=== PATIENT | female | born 1950 | race Caucasian/White ===

== ENCOUNTER 2016-05-18 16:15 | Inpatient (IN) | payer MEDICARE, OTHER ==
[~2016-05-18] VITALS: Ht 157.5 cm; Wt 63.9 kg
[~2016-05-18 16:15] MED LIST: ALBU8.5H3 INH; AMIT25TA9 PO; GLIP5TAB13 PO; HYD25 PO; IBUP-1542 PO; LISI10TA2 PO; LORA1TAB PO; MTF1000T PO; OMEP20CA9 PO; OSLT75C PO; POLY10DR19 LEFT EYE; VALS40TA2 PO
[2016-05-18] MEDS ORDERED: SODIUM CHLORIDE 0.9% 1L BAG IV* STA (19:08)
[2016-05-18] MEDS ORDERED: LEVOFLOXACIN 750MG/D5W (PMX) 150 ML IVPB STA (19:08)
[2016-05-18 19:42] LABS: ADD UMIC YES; URINE BILIRUBIN (Dip) NEGATIVE (NEGATIVE); URINE BLOOD (Dip) 1+ (NEGATIVE); URINE COLOR LT. YELLOW (YELLOW); URINE KETONES (Dip) TRACE (NEGATIVE); URINE LEUKOCYTE ESTERASE (Dip) 1+ (NEGATIVE); URINE NITRITE (Dip) NEGATIVE (NEGATIVE); URINE TOTAL PROTEIN (Dip) NEGATIVE (NEGATIVE); URINE UROBILINOGEN (Dip) 0.2 E.U./dL (0.1-1.0)
--- NOTE | 2016-05-18 19:42 | RADRPT ---
PROCEDURE: CR, chest CLINICAL INDICATION: Shortness of breath/sepsis. TECHNIQUE: AP chest. COMPARISON: Chest, 06/29/2015. FINDINGS: The heart is not enlarged. There is no acute infiltrate in the lungs. There is calcified atheroscl erosis of the aortic arch. No pleural effusion. IMPRESSION: 1. Unremarkable chest x-ray. 2. Calcified atherosclerosis of the aortic arch. RPTAT: GG .Oscar Estes MD, MD Date Time Electronically viewed and signed by .Oscar Estes MD, MD on 05/18/2016 19:41 .Y/
[2016-05-18 19:46] LABS: ALBUMIN 4.5 g/dl (3.3-4.9); CHLORIDE 94 mmol/L (97-110); SODIUM 132 mmol/L (135-144)
[2016-05-18 19:47] LABS: BASOPHILS % 0.1 % (0.0-2.0); EOSINOPHILS # 0.1 10^3/ul (0.0-0.5); EOSINOPHILS % 1.7 % (0.0-7.0); HEMATOCRIT 37.8 % (37.0-47.0); HEMOGLOBIN 12.8 g/dl (12.0-16.0); LYMPHOCYTES # 1.1 10^3/ul (0.8-2.9); LYMPHOCYTES % 12.9 % (15.0-51.0); MEAN CORPUSCULAR HEMOGLOBIN 29.4 pg (29.0-33.0); MEAN CORPUSCULAR HGB CONC 33.8 g/dl (32.0-37.0); MONOCYTE # 0.4 10^3/ul (0.3-0.9); MONOCYTES % 4.9 % (0.0-11.0); NEUTROPHIL # 6.6 10^3/ul (1.6-7.5); NEUTROPHILS % 80.4 % (39.0-77.0); PLATELET COUNT 242 10^3/UL (140-440); POTASSIUM 5.7 mmol/L (3.5-5.1); RED BLOOD COUNT 4.35 10^6/ul (4.20-5.40); RED CELL DISTRIBUTION WIDTH 13.4 % (11.5-14.5); UNCORRECTED WBC 8.2 10^3/ul (4.8-10.8); WHITE BLOOD COUNT 8.2 10^3/ul (4.8-10.8)
[2016-05-18 19:48] LABS: CONDITION 1
[2016-05-18 19:49] LABS: ALANINE AMINOTRANSFERASE 18 IU/L (13-69); ALBUMIN/GLOBULIN RATIO 1.12; ALKALINE PHOSPHATASE 118 IU/L (42-121); ANION GAP 23 (8-16); ASPARTATE AMINO TRANSFERASE 14 IU/L (15-46); BILIRUBIN,INDIRECT 0.2 mg/dl (0-1.1); BILIRUBIN,TOTAL 0.2 mg/dl (0.2-1.3); BLOOD UREA NITROGEN 27 mg/dl (7-20); CARBON DIOXIDE 21 mmol/L (21-31); CREATININE 1.17 mg/dl (0.44-1.00); GLUCOSE 377 mg/dl (70-220); TOTAL PROTEIN 8.5 g/dl (6.1-8.1)
[2016-05-18] MEDS ORDERED: ALBUTEROL 0.5% (NEB) 2.5 MG/0.5 ML AMP HHN STA (19:49)
[2016-05-18] MEDS ORDERED: OMEP20CA16 PO (19:49)
[2016-05-18] MEDS ORDERED: ALBU18HF INHALATION (19:49)
[2016-05-18 19:50] LABS: CALCIUM 10.1 mg/dl (8.4-10.2)
[2016-05-18] MEDS ORDERED: AMIT25TA9 PO (19:50)
[2016-05-18] MEDS ORDERED: VALS1TAB82 PO (19:50)
[2016-05-18] MEDS ORDERED: INSU300I SQ (19:51)
[2016-05-18 19:56] LABS: INR 0.9; PROTIME 12.1 Sec (12.2-14.2); PT RATIO 0.9
[2016-05-18 19:57] LABS: BACTERIA,URINE FEW; SQUAMOUS EPITHELIAL CELL,UR MODERATE; URINE RBCS 0-2 /HPF (0)
[2016-05-18] MEDS ORDERED: IPRATROPIUM (NEB) 0.5 MG/2.5 ML AMP HHN ONE (20:00)
[2016-05-18 20:02] LABS: TROPONIN-I < 0.012 ng/ml (0.00-0.12)
[2016-05-18] MEDS ORDERED: AZTREONAM 1 GM/NS (PMX) 50 ML IVPB ONE (20:30)
[2016-05-18] MEDS ORDERED: ACETAMINOPHEN 325 MG TAB PO PRN (21:00)
[2016-05-18] MEDS ORDERED: ONDANSETRON 4 MG INJ IV PRN (21:00)
--- NOTE | 2016-05-18 21:07 | ERA ---
ER Documentation Chief Complaint Date/Time DATE: 05/18/16 TIME: 21:03 Chief Complaint sob for the past few days. recent fevers. mild coughing noted. HPI Patient is a 66-year-old female with asthma and diabetes who presents with shortness of breath. Her primary doctor diagnosed her with a flu on Tuesday. She felt short of breath and confused. She was given cough syrup but says "I have been in a days". She thinks that she might have passed out but she does not know. She has had fevers and cough. She had been given a course of Tamiflu which she has already finished. Upon review of old medical records this is the patient's 10th visit to the ER since 2008. ROS All systems reviewed and are negative except as per history of present illness. Medications Home Meds Reported Medications Insulin Glargine,Hum.rec.anlog (Tremayne Crocker) 300 Unit/1 Ml Insuln.pen, 12 UNIT SQ QHS 05/18/16 Valsartan-Hydrochlorothiazide (Valsartan-HCTZ) 320-25 Mg Tablet, 1 TAB PO DAILY , #30 TAB 05/18/16 Amitriptyline Hcl* (Amitriptyline Hcl*) 25 Mg Tablet, 25 MG PO QHS, #30 TAB 05/18/16 Omeprazole* (Omeprazole*) 20 Mg Capsule.dr, 20 MG PO BID, #60 CAP 05/18/16 Albuterol Sulfate* (Ventolin HFA*) 18 Gm Hfa.aer.ad, 2 PUFF INHALATION Q6H, #1 INHALER 05/18/16 Metformin* (Glucophage*) 1,000 Mg Tablet, 1000 MG PO BID, TAB 08/07/14 Discontinued Reported Medications Valsartan* (Diovan*) Unknown Strength Tablet, PO, TAB 08/07/14 Albuterol Sulfate* (Proair HFA*) 8.5 Gm Hfa.aer.ad, 2 PUFF INH Q4H Y for WHEEZING AND SOB, INH 08/07/14 Omeprazole* (Prilosec*) 20 Mg Capsule.dr, 20 MG PO DAILY, CAP 08/07/14 Lisinopril* (Lisinopril*) 10 Mg Tablet, 10 MG PO DAILY, TAB 08/07/14 Hydrochlorothiazide* (Hydrochlorothiazide*) 25 Mg Tab, 25 MG PO DAILY, TAB 08/07/14 Glipizide* (Glipizide*) 5 Mg Tablet, 5 MG PO BID, TAB 08/07/14 Amitriptyline Hcl* (Amitriptyline Hcl*) 25 Mg Tablet, 25 MG PO HS, TAB 08/07/14 Discontinued Scripts Polymyxin B Sulfate-TMP* (Polymyxin B-TMP Eye Drops*) 10 Ml Drops, 1 DROP LEFT EYE QID for 7 Days, EA Prov:SLAVA LORENZO PA-C 04/02/16 Ibuprofen* (Motrin*) 600 Mg Tab, 600 MG PO TID Y for PAIN AND/OR INFLAMMATION, # 30 TAB Prov:TESHA DESAI MD 06/29/15 Albuterol Sulfate* (Proair HFA*) 8.5 Gm Hfa.aer.ad, 2 PUFF INH Q4 for COUGH, #1 INHALER Prov:TESHA DESAI MD 06/29/15 Oseltamivir Phosphate* (Tamiflu*) 75 Mg Capsule, 75 MG PO BID for 5 Days, CAP Prov:TESHA DESAI MD 06/29/15 Lorazepam* (Lorazepam*) 1 Mg Tablet, 1 MG PO Q8H Y for ANXIETY, #20 Prov:JESSE ARCEO 01/21/15 Allergies Allergies: Coded Allergies: Penicillins (Verified Allergy, Mild, 05/18/16) codeine (Verified Allergy, Mild, 05/18/16) PMhx/Soc History of Surgery: Yes (NASAL, TUBAL LIGATION 2X) Anesthesia Reaction: No Hx Neurological Disorder: No Hx Respiratory Disorders: Yes (asthma) Hx Cardiac Disorders: Yes (htn, iddm) Hx Psychiatric Problems: No Hx Miscellaneous Medical Probl: Yes (DIABETES) Hx Alcohol Use: No Hx Substance Use: No Hx Tobacco Use: Yes Smoking Status: Former smoker FmHx Family History: diabetes Physical Exam Vitals Vital Signs Date Time Temp Pulse Resp B/P Pulse Ox O2 Delivery O2 Flow Rate FiO2 05/18/16 20:02 87 22 97 21 05/18/16 19:31 99.4 82 20 131/74 100 Room Air 05/18/16 16:18 99.9 97 20 207/79 99 Physical Exam Const: Rigors, confusion Head: Atraumatic Eyes: Normal Conjunctiva ENT: Normal External Ears, Nose and Mouth. Neck: Full range of motion..~ No meningismus. Resp: Clear to auscultation bilaterally Cardio: Regular rate and rhythm, no murmurs Abd: Soft, non tender, non distended. Normal bowel sounds Skin: No petechiae or rashes Back: No midline or flank tenderness Ext: No cyanosis, or edema Neur: Awake but confused Psych: Normal Mood and Affect Result Diagram: 05/18/16191905/18/161919 Results 24 hrs Laboratory Tests Test 05/18/16 19:20 Activated Partial Thromboplast Time 29.0Sec Alanine Aminotransferase (ALT/SGPT) 18IU/L Albumin 4.5g/dl Albumin/Globulin Ratio 1.12 Alkaline Phosphatase 118IU/L Anion Gap 23 Aspartate Amino Transf (AST/SGOT) 14IU/L Basophils # 0.010^3/ul Basophils % 0.1% Blood Urea Nitrogen 27mg/dl Calcium Level 10.1mg/dl Carbon Dioxide Level 21mmol/L Chloride Level 94mmol/L Creatinine 1.17mg/dl Direct Bilirubin 0.00mg/dl Eosinophils # 0.110^3/ul Eosinophils % 1.7% Globulin 4.00g/dl Glucose Level 377mg/dl Hematocrit 37.8% Hemoglobin 12.8g/dl INR International Normalized Ratio 0.90 Indirect Bilirubin 0.2mg/dl Lactic Acid Level 1.9mmol/L Lymphocytes # 1.110^3/ul Lymphocytes % 12.9% Mean Corpuscular Hemoglobin 29.4pg Mean Corpuscular Hemoglobin Concent 33.8g/dl Mean Corpuscular Volume 87.0fl Mean Platelet Volume 9.0fl Monocytes # 0.410^3/ul Monocytes % 4.9% Neutrophils # 6.610^3/ul Neutrophils % 80.4% Nucleated Red Blood Cells # 0.010^3/ul Nucleated Red Blood Cells % 0.0/100WBC Platelet Count 84756^3/UL Potassium Level 5.7mmol/L Prothrombin Time 12.1Sec Prothrombin Time Ratio 0.9 Red Blood Count 4.3510^6/ul Red Cell Distribution Width 13.4% Sodium Level 132mmol/L Total Bilirubin 0.2mg/dl Total Protein 8.5g/dl Troponin I < 0.012ng/ml Urine Bacteria FEW Urine Bilirubin NEGATIVE Urine Clarity CLEAR Urine Color LT. YELLOW Urine Glucose 0.25%% Urine Hemoglobin 1+ Urine Ketones TRACE Urine Leukocyte Esterase 1+ Urine Microscopic RBC 0-2/HPF Urine Microscopic WBC 25-50/HPF Urine Nitrite NEGATIVE Urine Specific Bates 1.015 Urine Squamous Epithelial Cells MODERATE Urine Total Protein NEGATIVE Urine Urobilinogen 0.2 E.U./dL Urine pH 5.5 White Blood Count 8.210^3/ul Current Medications Medications (Trade) Dose Ordered Sig/Zita Route PRN Reason Start Time Stop Time Status Last Admin Dose Admin Sodium Chloride 1980 ml 1,980 ml BOLUS OVER 2 HOURS STAT IV* 05/18/16 19:08 05/18/16 19:10 DC 05/18/16 19:30 Levofloxacin/ Dextrose (Levaquin 750 Mg/ D5W 150 ml (Pmx)) 150 ml @ 100 mls/hr ONCE STAT IVPB 05/18/16 19:08 05/18/16 20:37 DC 05/18/16 19:30 Albuterol (Proventil 0.5% (Neb)) 5 mg ONCE STAT HHN 05/18/16 19:49 05/18/16 19:50 DC 05/18/16 20:01 Ipratropium [place] 0.5 mg 0.5 mg ONCE ONCE HHN 05/18/16 20:00 05/18/16 20:01 DC 05/18/16 20:01 Aztreonam (Azactam 1gm/NS (Pmx)) 50 ml @ 100 mls/hr ONCE ONCE IVPB 05/18/16 20:30 05/18/16 20:59 DC Ondansetron HCl (Zofran Inj) 4 mg BRIDGE ORDER PRN IV NAUSEA AND/OR VOMITING 05/18/16 21:00 05/19/16 20:59 Acetaminophen (Tylenol Tab) 650 mg ER BRIDGE PRN PO MILD PAIN/FEVER 05/18/16 21:00 05/19/16 20:59 Procedures/MDM EKG read by me: Rate/Rhythm: Regular rate and rhythm at a rate of 83 Intervals: Normal Impression: No evidence of ischemia or arrhythmia Chest x-ray negative for pneumonia per radiology. Admit MDM: Patient's infectious symptoms have not stabilized and the patient is at risk of rapid decompensation. The patient will be admitted for careful hydration, antibiotic therapy, and infectious source control. Severe Sepsis criteria: Infectious source: Cystitis End organ damage indicated by: No end organ damage at this time Sepsis Management: Time of recognition of sepsis: 19:20 Within 3 hours of recognition: Blood cultures x 2 before broad-spectrum antibiotics: Yes 30 ml/kg NS bolus Completed Initial lactate 1.9 Repeat lactate pending Time of recognition of septic shock: No septic shock Septic Shock Assessment: Any lactic acid > 4.0 No Persistent hypotension (SBP < 90 or 40 mmHg drop, MAP < 65) despite 30 mL/kg IV fluid bolus No Volume Re-assessment for Septic Shock (post 30 ml/kg bolus): No septic shock at this time Persistent Hypotension Treatment: Comfort care No Central line Not Required Vasopressor started Not required I considered further perfusion assessment with CVP measurement, SCVO2, bedside ultrasound volume assessment, passive leg raise, trial of further fluid bolus. And proceeded with 30 ml/kg fluid bolus of NSS, broad spectrum antibiotics, and admission. Patient has hyperglycemia and was given fluid resuscitation, patient also has hyperkalemia which will also be helped from fluid resuscitation. Accepting Care Team Current data and ongoing care discussed. Admitting Physician: Dr. White as the previous admission was Dr. Morrison in 2010 , patient has Medicare a and B and will be admitted to the panel Telemarketer Supervisor(s): None Outstanding Data: Culture results and repeat lactic acid Critical Care: Critical care time 35 minutes excluding all billable procedures Emergent fluid management while maintaining close respiratory support. Provision of immediate and broad-spectrum antibiotic therapy. Simultaneous assessment for possible sources in order to direct targeted therapy. Consideration for invasive and chemical support to prevent cardiopulmonary collapse. Departure Diagnosis: Primary Impression: Sepsis Qualified Code: A41.9 - Sepsis, due to unspecified organism Additional Impressions: Shortness of breath Cystitis Hyperglycemia Hyperkalemia Condition: OSVALDO Lainez MD May 18, 2016 21:07
[2016-05-18 21:38] VITALS: TEMP 99
[2016-05-18 23:00] VITALS: Ht 157.5 cm; Wt 63.9 kg
[2016-05-18] MEDS ORDERED: morphine 4 MG/ML VIAL IV PRN (23:30)
[2016-05-18] MEDS ORDERED: GLUCOSE GEL 15 GRAM TUBE PO PRN ×2 (23:45)
[2016-05-18] MEDS ORDERED: GLUCOSE GEL 15 GRAM TUBE BUCCAL PRN (23:45)
[2016-05-18] MEDS ORDERED: GLUCAGON 1 MG INJ IM PRN (23:45)
[2016-05-18] MEDS ORDERED: DEXTROSE 50% 50 ML SYRINGE IV PRN ×2 (23:45)
[2016-05-19] MEDS: SOD CHLORIDE 0.9% 1,000 ML IV SCH ×3 (00:40→22:28)
[2016-05-19] MEDS: INSULIN GLARGINE [LANtus] 3 ML PEN SC SCH ×2 (00:53→20:53)
[2016-05-19] MEDS: ACETAMINOPHEN 325 MG TAB PO PRN ×4 (00:59→19:47)
[2016-05-19] MEDS: INSULIN ASPART [NOVOLOG] 3 ML PEN SC SCH ×5 (01:16→20:53)
[2016-05-19] MEDS: AMITRIPTYLINE 25 MG TAB PO SCH ×2 (01:16→20:49)
[2016-05-19] MEDS: GUAIFENESIN 20 MG/ML 5ML CUP PO PRN ×2 (01:24→12:12)
[2016-05-19] MEDS: ACCUCHECK XX SCH (02:00)
[2016-05-19] MEDS ORDERED: NA POLYST SULFON 15 GM/60 ML BTL PO ONE (02:00)
[2016-05-19] MEDS: ALBUTEROL HFA 8 GM INHALER INH PRN ×2 (05:52→12:04)
[2016-05-19 06:06] LABS: BASOPHILS % 0.3 % (0.0-2.0); EOSINOPHILS # 0.1 10^3/ul (0.0-0.5); EOSINOPHILS % 2.1 % (0.0-7.0); HEMATOCRIT 33.6 % (37.0-47.0); HEMOGLOBIN 11.4 g/dl (12.0-16.0); LYMPHOCYTES # 1.4 10^3/ul (0.8-2.9); MEAN CORPUSCULAR HEMOGLOBIN 29.3 pg (29.0-33.0); MEAN CORPUSCULAR HGB CONC 33.8 g/dl (32.0-37.0); MEAN CORPUSCULAR VOLUME 86.7 fl (82.0-101.0); MEAN PLATELET VOLUME 8.7 fl (7.4-10.4); MONOCYTE # 0.5 10^3/ul (0.3-0.9); MONOCYTES % 6.5 % (0.0-11.0); NEUTROPHILS % 71.1 % (39.0-77.0); PLATELET COUNT 230 10^3/UL (140-440); RED BLOOD COUNT 3.88 10^6/ul (4.20-5.40); RED CELL DISTRIBUTION WIDTH 13.3 % (11.5-14.5)
[2016-05-19 06:14] LABS: ALBUMIN 3.7 g/dl (3.3-4.9)
[2016-05-19 06:15] LABS: POTASSIUM 4.8 mmol/L (3.5-5.1)
[2016-05-19 06:17] LABS: ALBUMIN/GLOBULIN RATIO 1.15; BILIRUBIN,INDIRECT 0.2 mg/dl (0-1.1); BILIRUBIN,TOTAL 0.2 mg/dl (0.2-1.3); CREATININE 0.97 mg/dl (0.44-1.00); PHOSPHORUS 3.4 mg/dl (2.5-4.9); TOTAL PROTEIN 6.9 g/dl (6.1-8.1)
[2016-05-19 06:18] LABS: CALCIUM 9.5 mg/dl (8.4-10.2); MAGNESIUM 1.3 mg/dl (1.7-2.5)
[2016-05-19 06:28] LABS: CONDITION 1
[2016-05-19 08:00] VITALS: BP 122/60; PULSE 80; RESP 16
[2016-05-19] MEDS ORDERED: metFORMIN 500 MG TAB PO SCH (08:00)
[2016-05-19] MEDS: VALSARTAN 160 MG TAB PO SCH (08:59)
[2016-05-19] MEDS: HYDROCHLOROTHIAZIDE 25 MG TAB PO SCH (08:59)
[2016-05-19] MEDS: FAMOTIDINE 20 MG TAB PO SCH ×2 (09:00→20:49)
[2016-05-19] MEDS ORDERED: MAGNESIUM SULFATE 4 GM/100 ML 100 ML IVPB ONE (15:00)
--- NOTE | 2016-05-19 16:14 | HP ---
Date/Time of Note Date/Time of Note DATE: 05/19/16 TIME: 15:58 Assessment/Plan VTE Prophylaxis VTE Prophylaxis Intervention: LMWH Lines/Catheters IV Catheter Type (from Nrs): Peripheral IV Urinary Cath still in place: No Assessment/Plan Assessment/Plan 1. UTI, on cipro 2. Acute bronchitis, on cipro 3. DM, stable, continue metformin and insulins 4. Hypertension, controlled 5. Asthma, on neb 6 Drug allergy to PCN HPI/ROS Admit Date/Time Admit Date/Time May 18, 2016 at 20:40 Hx of Present Illness 66 years old female came in with cough, brownish sputum and shortness of breath for one week, along with urinary urgency frequency and dysuria. She has left flank pain. ROS Constitutional: chills, No diaphoresis, No disoriented, No fatigue, No febrile, No nausea, No poor po , No weight change Eyes: No discharge, No pain, No redness, No visual change ENT: No bleeding, No congestion, No discharge, No dysphagia, No pain, No sore throat Respiratory: cough, shortness of breath, sputum, No pain, No pleuritic pain, No wheezing Cardiovascular: No chest pain, No edema, No lightheadedness, No orthopenea, No palpitations, No paroxysmal nocturnal dyspnea Gastrointestinal: No blood, No constipation, No decreased appetite, No diarrhea , No flatus, No nausea, No pain, No passing stool, No vomiting Genitourinary: No bleeding, No discharge, No dysuria, No flank pain, No hematuria Musculoskeletal: No back pain, No bone/joint pain, No neck pain, No restricted range of motion, No swelling Skin: No bruising, No erythema, No laceration, No pruritis, No rash, No skin lesions Neurologic: No confusion, No dizziness, No focal-weakness, No headache, No seizure, No syncope Endocrine: No dry skin, No polydypsia, No polyuria, No temp intolerance, No weight change PMH/Family/Social Past Medical History Medical History: diabetes, hypertension, other (asthma) Family History Significant Family History: no pertinent family hx Social History Alcohol Use: none Smoking Status: Never smoker Drug Use: none Exam/Review of Systems Vital Signs Vitals Vital Signs Date Time Temp Pulse Resp B/P Pulse Ox O2 Delivery O2 Flow Rate FiO2 05/19/16 08:00 97.8 80 16 122/60 100 Room Air 05/18/16 20:02 21 Intake and Output 05/18/16 05/18/16 05/19/16 15:00 23:00 07:00 Intake Total 500 ml Balance 500 ml Exam Constitutional: alert, oriented, well developed Psych: nl mood/affect, no complaints Head: atraumatic, normocephalic Eyes: EOMI, PERRL, nl conjunctiva, nl lids, nl sclera ENMT: mucosa pink and moist, nl external ears & nose, nl lips & teeth, nl nasal mucosa & septum Neck: non-tender, supple Respiratory: clear to auscultation, normal air movement Cardiovascular: nl pulses, regular rate and rhythm, No S3, No S4, No bruits, No diastolic murmur, No edema, No gallop, No irregular rhythm, No jugular venous distention (JVD), No murmurs/extra sounds, No rub, No systolic murmur Gastrointestinal: nl liver, spleen, non-tender, soft, No ascites, No bowel sounds, No distended, No firm, No hepatomegaly, No mass , No rebound or guarding, No splenomegaly, No surgical scars, No tender Musculoskeletal: nl extremities to inspection, other (left flank tenderness) Extremities: normal pulses, No calf tenderness, No clubbing, No cyanosis, No edema, No palpable cord, No pitting pedal edema, No tenderness Neurological: PIGMENT AND LACQUER MIXER II-XII intact, nl mental status, nl speech, nl strength Skin: nl turgor, rash or lesions Lymph: nl lymph nodes Labs Result Diagram: 05/19/16 0510 05/19/16 0510 Medications Medications Current Medications Ciprofloxacin/ Dextrose 200 ml @ 200 mls/hr Q12 IVPB ; Start 05/19/16 at 21:00 Sodium Chloride (NS) 1,000 ml @ 100 mls/hr Q10H IV Last administered on t 11:34; Admin Dose 100 MLS/HR; Start 05/18/16 at 23:30 Insulin Glargine (Lantus) 12 unit HS SC Last administered on 05/19/16t 00:53; Admin Dose 12 UNIT; Start 05/18/16 at 23:30 Diagnostic Test (Pha) (Accucheck) 1 ea 02 XX ; Start 05/19/16 at 02:00 Morphine Sulfate (morphine) 3 mg Q4H PRN IV PAIN LEVEL 7-10; Start 05/18/16 at 23:30; Status UNV Acetaminophen (Tylenol Tab) 650 mg Q6H PRN PO PAIN AND OR ELEVATED TEMP Last administered on 05/19/16 12:10; Admin Dose 650 MG; Start 05/18/16 at 23:30 Amitriptyline HCl (Elavil) 25 mg QHS PO Last administered on 05/19/16 01:16; Admin Dose 25 MG; Start 05/19/16 at 01:00 Valsartan (Diovan) 320 mg DAILY PO Last administered on 05/19/16 08:59; Admin Dose 320 MG; Start 05/19/16 at 09:00 Famotidine (Pepcid) 20 mg BID PO Last administered on 05/19/16 09:00; Admin Dose 20 MG; Start 05/19/16 at 09:00 Miscellaneous Information 1 ea NOTE XX ; Start 05/18/16 at 23:45 Glucose (Glutose) 15 gm Q15M PRN PO DECREASED GLUCOSE; Start 05/18/16 at 23:45 Glucose (Glutose) 22.5 gm Q15M PRN PO DECREASED GLUCOSE; Start 05/18/16 at 23: 45 Dextrose (D50w Syringe) 25 ml Q15M PRN IV DECREASED GLUCOSE; Start 05/18/16 at 23:45 Dextrose (D50w Syringe) 50 ml Q15M PRN IV DECREASED GLUCOSE; Start 05/18/16 at 23:45 Glucagon (Glucagen) 1 mg Q15M PRN IM DECREASED GLUCOSE; Start 05/18/16 at 23:45 Glucose (Glutose) 15 gm Q15M PRN BUCCAL DECREASED GLUCOSE; Start 05/18/16 at 23 :45 Hydrochlorothiazide (Hydrochlorothiazide) 25 mg DAILY PO Last administered on 08:59; Admin Dose 25 MG; Start 05/19/16 at 09:00 Guaifenesin (Robitussin Liquid Cup) 200 mg Q4H PRN PO COUGH Last administered on 05/19/16 12:12; Admin Dose 200 MG; Start 05/19/16 at 01:10 Influenza Virus Vaccine 0.5 ml 0.5 ml ONCE ONCE IM* ; Start 05/21/16 at 09:00; Stop 05/21/16 at 09:01 Magnesium Sulfate (Magnesium Sulfate 4 Gm/100 ml) 100 ml @ 25 mls/hr ONCE ONCE IVPB Last administered on 05/19/16t 14:23; Admin Dose 25 MLS/HR; Start at 15:00; Stop 05/19/16 at 18:59 ORLANDO HAMILTON MD May 19, 2016 16:08
[2016-05-19] MEDS: ENOXAPARIN 40 MG/0.4 ML SYG SC SCH (17:34)
--- NOTE | 2016-05-19 18:52 | RADRPT ---
PROCEDURE: Ultrasound renal and bladder CLINICAL INDICATION: Left flank pain TECHNIQUE: Whitt scale and color doppler ultrasound images of the kidneys and urinary bladder. COMPARISON: No prior studies are available for comparison. FINDINGS: Kidneys: Right 9.3 cm in length. Left 9.2 cm in length. Renal cortical thickness is preserved bilaterally measuring greater than 10 mm per Normal echogenicity. No hydronephrosis. No focal lesions or renal calculi. Bladder: No focal lesions. IMPRESSION: No evidence of renal calculi or hydronephrosis. Kidneys are mildly small in size but with preserved cortical thickness. RPTAT: AADD .Robbin Barney MD, MD Date Time Electronically viewed and signed by .Robbin Barney MD, on 05/19/2016 18:51 .B/
[2016-05-19 19:32] VITALS: BP 154/68; RESP 18
[2016-05-19] MEDS: CIPROFLOXACIN 400MG/D5W 200 ML IVPB SCH (20:49)
[2016-05-20] MEDS: ALBUTEROL HFA 8 GM INHALER INH PRN (02:10)
[2016-05-20] MEDS: ACCUCHECK XX SCH (02:17)
[2016-05-20] MEDS: SOD CHLORIDE 0.9% 1,000 ML IV SCH ×3 (05:30→23:01)
[2016-05-20 06:02] LABS: BASOPHILS % 0.6 % (0.0-2.0); EOSINOPHILS # 0.4 10^3/ul (0.0-0.5); EOSINOPHILS % 5.4 % (0.0-7.0); HEMOGLOBIN 11.1 g/dl (12.0-16.0); LYMPHOCYTES # 1.6 10^3/ul (0.8-2.9); LYMPHOCYTES % 22.5 % (15.0-51.0); MEAN CORPUSCULAR HEMOGLOBIN 29.3 pg (29.0-33.0); MEAN CORPUSCULAR HGB CONC 33.8 g/dl (32.0-37.0); MEAN CORPUSCULAR VOLUME 86.6 fl (82.0-101.0); MEAN PLATELET VOLUME 8.4 fl (7.4-10.4); MONOCYTE # 0.6 10^3/ul (0.3-0.9); MONOCYTES % 8.3 % (0.0-11.0); NEUTROPHIL # 4.5 10^3/ul (1.6-7.5); NEUTROPHILS % 63.2 % (39.0-77.0); PLATELET COUNT 225 10^3/UL (140-440); RED BLOOD COUNT 3.81 10^6/ul (4.20-5.40); RED CELL DISTRIBUTION WIDTH 13.3 % (11.5-14.5); UNCORRECTED WBC 7.2 10^3/ul (4.8-10.8); WHITE BLOOD COUNT 7.2 10^3/ul (4.8-10.8)
[2016-05-20 06:13] LABS: CONDITION 1
[2016-05-20 06:20] LABS: POTASSIUM 4.2 mmol/L (3.5-5.1)
[2016-05-20 06:22] LABS: CREATININE 0.78 mg/dl (0.44-1.00)
[2016-05-20 06:23] LABS: CALCIUM 9.1 mg/dl (8.4-10.2)
[2016-05-20 07:54] VITALS: BP 126/58; RESP 16
[2016-05-20] MEDS: INSULIN ASPART [NOVOLOG] 3 ML PEN SC SCH ×4 (09:17→20:49)
[2016-05-20] MEDS: ENOXAPARIN 40 MG/0.4 ML SYG SC SCH (09:18)
[2016-05-20] MEDS: FAMOTIDINE 20 MG TAB PO SCH ×2 (09:18→20:49)
[2016-05-20] MEDS: VALSARTAN 160 MG TAB PO SCH (09:18)
[2016-05-20] MEDS: HYDROCHLOROTHIAZIDE 25 MG TAB PO SCH (09:19)
[2016-05-20] MEDS: CIPROFLOXACIN 400MG/D5W 200 ML IVPB SCH ×2 (09:19→20:49)
[2016-05-20] MEDS: ACETAMINOPHEN 325 MG TAB PO PRN ×2 (11:45→22:00)
--- NOTE | 2016-05-20 15:25 | PN ---
Date/Time of Note Date/Time of Note DATE: 05/20/16 TIME: 15:23 Assessment/Plan VTE Prophylaxis VTE Prophylaxis Intervention: LMWH Lines/Catheters IV Catheter Type (from Nrsg): Peripheral IV Urinary Cath still in place: No Assessment/Plan Assessment/Plan 1. UTI, on cipro, improving 2. Acute bronchitis, on cipro 3. DM, stable, continue metformin and insulins 4. Hypertension, controlled 5. Asthma, on neb 6 Drug allergy to PCN Subjective 24 Hr Interval Summary Free Text/Dictation feels better but still very weak, dizzy on standing, left flank pain is less Exam/Review of Systems Vital Signs Vitals Vital Signs Date Time Temp Pulse Resp B/P Pulse Ox O2 Delivery O2 Flow Rate FiO2 05/20/16 07:54 98.2 59 16 126/58 98 05/19/16 08:00 Room Air 05/18/16 20:02 21 Intake and Output 05/19/16 05/19/16 05/20/16 15:00 23:00 07:00 Intake Total 900 ml 2520 ml 1540 ml Output Total 200 ml Balance 900 ml 2320 ml 1540 ml Exam Constitutional: alert, oriented, well developed Psych: nl mood/affect, no complaints Head: atraumatic, normocephalic Eyes: EOMI, PERRL, nl conjunctiva, nl lids, nl sclera ENMT: mucosa pink and moist, nl external ears & nose, nl lips & teeth, nl nasal mucosa & septum Neck: non-tender, supple Respiratory: clear to auscultation, normal air movement, No congested cough, No crackles/rales, No diminished breath sounds, No intercostal retraction, No labored breathing, No respirations, No tactile fremitus, No wheezing Cardiovascular: nl pulses, other, regular rate and rhythm, No S3, No S4, No bruits, No diastolic murmur, No edema, No gallop, No irregular rhythm, No jugular venous distention (JVD), No murmurs/extra sounds, No rub, No systolic murmur Gastrointestinal: nl liver, spleen, non-tender, soft, No ascites, No bowel sounds, No distended, No firm, No hepatomegaly, No mass , No rebound or guarding, No splenomegaly, No surgical scars Extremities: normal pulses, No calf tenderness, No clubbing, No cyanosis, No edema, No palpable cord, No pitting pedal edema, No tenderness Neurological: HAND UMBRELLA TIPPER II-XII intact, nl mental status, nl speech, nl strength Skin: nl turgor, rash or lesions Lymph: nl lymph nodes Results Result Diagram: 05/20/16 0520 05/20/16 0520 Results 24 hrs Laboratory Tests Test 05/19/16 16:33 05/19/16 20:43 05/20/16 02:05 05/20/16 05:20 Bedside Glucose 111 252 H 217 Anion Gap 15 Basophils # 0.0 Basophils % 0.6 Blood Urea Nitrogen 12 Calcium Level 9.1 Carbon Dioxide Level 26 Chloride Level 101 Creatinine 0.78 Eosinophils # 0.4 Eosinophils % 5.4 Glucose Level 172 Hematocrit 33.0 L Hemoglobin 11.1 L Lymphocytes # 1.6 Lymphocytes % 22.5 Mean Corpuscular Hemoglobin 29.3 Mean Corpuscular Hemoglobin Concent 33.8 Mean Corpuscular Volume 86.6 Mean Platelet Volume 8.4 Monocytes # 0.6 Monocytes % 8.3 Neutrophils # 4.5 Neutrophils % 63.2 Nucleated Red Blood Cells # 0.0 Nucleated Red Blood Cells % 0.0 Platelet Count 225 Potassium Level 4.2 Red Blood Count 3.81 L Red Cell Distribution Width 13.3 Sodium Level 138 White Blood Count 7.2 Test 05/20/16 07:47 05/20/16 11:48 Bedside Glucose 154 238 H Medications Medications Current Medications Ciprofloxacin/ Dextrose 200 ml @ 200 mls/hr Q12 IVPB Last administered on 05/20 09:19; Admin Dose 200 MLS/HR; Start 05/19/16 at 21:00 Sodium Chloride (NS) 1,000 ml @ 100 mls/hr Q10H IV Last administered on 12:36; Admin Dose 100 MLS/HR; Start 05/18/16 at 23:30 Insulin Glargine (Lantus) 12 unit HS SC Last administered on 05/19/16 20:53; Admin Dose 12 UNIT; Start 05/18/16 at 23:30 Diagnostic Test (Pha) (Accucheck) 1 ea 02 XX Last administered on 05/20/16 02: 17; Admin Dose 1 EA; Start 05/19/16 at 02:00 Morphine Sulfate (morphine) 3 mg Q4H PRN IV PAIN LEVEL 7-10; Start 05/18/16 at 23:30; Status Future Hold Acetaminophen (Tylenol Tab) 650 mg Q6H PRN PO PAIN AND OR ELEVATED TEMP Last administered on 05/20/16 11:45; Admin Dose 650 MG; Start 05/18/16 at 23:30 Amitriptyline HCl (Elavil) 25 mg QHS PO Last administered on 05/19/16 20:49; Admin Dose 25 MG; Start 05/19/16 at 01:00 Valsartan (Diovan) 320 mg DAILY PO Last administered on 05/20/16 09:18; Admin Dose 320 MG; Start 05/19/16 at 09:00 Famotidine (Pepcid) 20 mg BID PO Last administered on 05/20/16 09:18; Admin Dose 20 MG; Start 05/19/16 at 09:00 Miscellaneous Information 1 ea NOTE XX ; Start 05/18/16 at 23:45 Glucose (Glutose) 15 gm Q15M PRN PO DECREASED GLUCOSE; Start 05/18/16 at 23:45 Glucose (Glutose) 22.5 gm Q15M PRN PO DECREASED GLUCOSE; Start 05/18/16 at 23: 45 Dextrose (D50w Syringe) 25 ml Q15M PRN IV DECREASED GLUCOSE; Start 05/18/16 at 23:45 Dextrose (D50w Syringe) 50 ml Q15M PRN IV DECREASED GLUCOSE; Start 05/18/16 at 23:45 Glucagon (Glucagen) 1 mg Q15M PRN IM DECREASED GLUCOSE; Start 05/18/16 at 23:45 Glucose (Glutose) 15 gm Q15M PRN BUCCAL DECREASED GLUCOSE; Start 05/18/16 at 23 :45 Hydrochlorothiazide (Hydrochlorothiazide) 25 mg DAILY PO Last administered on 09:19; Admin Dose 25 MG; Start 05/19/16 at 09:00 Guaifenesin (Robitussin Liquid Cup) 200 mg Q4H PRN PO COUGH Last administered on 05/19/16 12:12; Admin Dose 200 MG; Start 05/19/16 at 01:10 Influenza Virus Vaccine (Fluzone) 0.5 ml ONCE ONCE IM* ; Start 05/21/16 at 09:00 ; Stop 05/21/16 at 09:01 Enoxaparin Sodium (Lovenox) 40 mg DAILY SC Last administered on 05/20/16t 09:18 ; Admin Dose 40 MG; Start 05/19/16 at 16:00 ORLANDO HAMILTON MD May 20, 2016 15:25
[2016-05-20 20:42] VITALS: BP 181/74; RESP 18
[2016-05-20] MEDS: AMITRIPTYLINE 25 MG TAB PO SCH (20:49)
[2016-05-20] MEDS: INSULIN GLARGINE [LANtus] 3 ML PEN SC SCH (20:49)
[2016-05-20] MEDS ORDERED: hydrALAzine 20 MG INJ IV PRN (21:56)
[2016-05-20 22:00] VITALS: BP 200/82; PULSE 71
[2016-05-20] MEDS ORDERED: AMLODIPINE 10 MG TAB PO STA (22:59)
[2016-05-20 23:00] VITALS: BP 209/85; PULSE 78
[2016-05-20] MEDS ORDERED: hydrALAzine 20 MG INJ IV ONE (23:00)
[2016-05-20 23:30] VITALS: BP 154/70; PULSE 107
[2016-05-21] VITALS: BP 143/66; PULSE 98
[2016-05-21] MEDS: ACCUCHECK XX SCH (02:02)
[2016-05-21] MEDS: ALBUTEROL HFA 8 GM INHALER INH PRN (03:49)
[2016-05-21] MEDS: ACETAMINOPHEN 325 MG TAB PO PRN (07:49)
[2016-05-21 08:16] VITALS: BP 145/77; PULSE 90; RESP 16
[2016-05-21] MEDS: INSULIN ASPART [NOVOLOG] 3 ML PEN SC SCH ×2 (08:19→11:59)
[2016-05-21] MEDS: ENOXAPARIN 40 MG/0.4 ML SYG SC SCH (08:20)
[2016-05-21] MEDS: CIPROFLOXACIN 400MG/D5W 200 ML IVPB SCH (08:21)
[2016-05-21] MEDS: HYDROCHLOROTHIAZIDE 25 MG TAB PO SCH (08:22)
[2016-05-21] MEDS: VALSARTAN 160 MG TAB PO SCH (08:22)
[2016-05-21] MEDS: FAMOTIDINE 20 MG TAB PO SCH (08:22)
[2016-05-21] MEDS ORDERED: INFLUENZA VIRUS VACCINE 0.5 ML SYG IM* ONE (09:00)
[2016-05-21] MEDS ORDERED: LEVO500T10 PO (15:02)
--- NOTE | 2016-05-21 15:09 | DS ---
Date/Time of Note Date/Time of Note DATE: 05/21/16 TIME: 15:04 Discharge Summary Admission/Discharge Info Admit Date/Time May 18, 2016 at 20:40 Discharge Date/Time Final Diagnosis 1. UTI, improved, levaquin 2. Acute bronchitis, on levaquin 3. DM, uncontrolled, metformin and insulins, follow up with PCP 4. Hypertension, controlled 5. Asthma, on neb 6 Drug allergy to PCN Hx of Present Illness 66 years old female came in with cough, brownish sputum and shortness of breath for one week, along with urinary urgency frequency and dysuria. She has left flank pain. UA WBC 25-50. Renal ultrasound no stone or hydro. Patient is treated with cipro for urinary tract infection. Her symptoms improved. She will be on levaquin for 7 more days. Patient has hyperglycemia on insulin. She states she has a diabetic person monitoring her blood glucose and insulin dosage closely at home. I will have her follow up with that person since he knows patient better, to adjust diatebes treatment. Hospital Course 66 years old female came in with cough, brownish sputum and shortness of breath for one week, along with urinary urgency frequency and dysuria. She has left flank pain. UA WBC 25-50. Renal ultrasound no stone or hydro. Patient is treated with cipro for urinary tract infection. Her symptoms improved. She will be on levaquin for 7 more days. Patient has hyperglycemia on insulin. She states she has a diabetic person monitoring her blood glucose and insulin dosage closely at home. I will have her follow up with that person since he knows patient better, to adjust diatebes treatment. Home Meds Active Scripts Levofloxacin* (Levofloxacin*) 500 Mg Tablet, 500 MG PO DAILY for 7 Days, TAB Prov:ORLANDO HAMILTON MD 05/21/16 Reported Medications Insulin Glargine,Hum.rec.anlog (Tremayne Crocker) 300 Unit/1 Ml Insuln.pen, 12 UNIT SQ QHS 05/18/16 Valsartan-Hydrochlorothiazide (Valsartan-HCTZ) 320-25 Mg Tablet, 1 TAB PO DAILY , #30 TAB 05/18/16 Amitriptyline Hcl* (Amitriptyline Hcl*) 25 Mg Tablet, 25 MG PO QHS, #30 TAB 05/18/16 Metformin* (Glucophage*) 1,000 Mg Tablet, 1000 MG PO BID, TAB 08/07/14 Discontinued Reported Medications Omeprazole* (Omeprazole*) 20 Mg Capsule.dr, 20 MG PO BID, #60 CAP 05/18/16 Albuterol Sulfate* (Ventolin HFA*) 18 Gm Hfa.aer.ad, 2 PUFF INHALATION Q6H, #1 INHALER 05/18/16 Valsartan* (Diovan*) Unknown Strength Tablet, PO, TAB 08/07/14 Albuterol Sulfate* (Proair HFA*) 8.5 Gm Hfa.aer.ad, 2 PUFF INH Q4H Y for WHEEZING AND SOB, INH 08/07/14 Omeprazole* (Prilosec*) 20 Mg Capsule.dr, 20 MG PO DAILY, CAP 08/07/14 Lisinopril* (Lisinopril*) 10 Mg Tablet, 10 MG PO DAILY, TAB 08/07/14 Hydrochlorothiazide* (Hydrochlorothiazide*) 25 Mg Tab, 25 MG PO DAILY, TAB 08/07/14 Glipizide* (Glipizide*) 5 Mg Tablet, 5 MG PO BID, TAB 08/07/14 Amitriptyline Hcl* (Amitriptyline Hcl*) 25 Mg Tablet, 25 MG PO HS, TAB 08/07/14 Discontinued Scripts Polymyxin B Sulfate-TMP* (Polymyxin B-TMP Eye Drops*) 10 Ml Drops, 1 DROP LEFT EYE QID for 7 Days, EA Prov:SLAVA LORENZO PA-C 04/02/16 Ibuprofen* (Motrin*) 600 Mg Tab, 600 MG PO TID Y for PAIN AND/OR INFLAMMATION, # 30 TAB Prov:TESHA DESAI MD 06/29/15 Albuterol Sulfate* (Proair HFA*) 8.5 Gm Hfa.aer.ad, 2 PUFF INH Q4 for COUGH, #1 INHALER Prov:TESHA DESAI MD 06/29/15 Oseltamivir Phosphate* (Tamiflu*) 75 Mg Capsule, 75 MG PO BID for 5 Days, CAP Prov:TESHA DESAI MD 06/29/15 Lorazepam* (Lorazepam*) 1 Mg Tablet, 1 MG PO Q8H Y for ANXIETY, #20 Prov:JESSE ARCEO 01/21/15 Follow-up Plan PCP one week Pending Labs Laboratory Tests Test 05/20/16 16:30 05/20/16 20:44 05/21/16 01:44 05/21/16 07:57 Bedside Glucose 306mg/dL (70-220) 181mg/dL (70-220) 234mg/dL (70-220) 194mg/dL (70-220) Test 05/21/16 11:26 Bedside Glucose 321mg/dL (70-220) ORLANDO HAMILTON MD May 21, 2016 15:09
[2016-05-21] MEDS ORDERED: AMLODIPINE 10 MG TAB PO SCH (18:00)
[2016-05-22] MEDS ORDERED: CIPROFLOXACIN 500 MG TAB PO SCH (06:00)
== END 2016-05-21 16:17 | disposition home or self-care (01) | DRG 690 ==
LOC: E/R 16:15 → PP2 20:40
PROVIDERS: ADMIT Internal Medicine; ATTEND Internal Medicine
DX: N39.0 Urinary tract infection, site not specified (principal); E11.65 Type 2 diabetes mellitus with hyperglycemia; I10 Essential (primary) hypertension; J20.9 Acute bronchitis, unspecified; J45.909 Unspecified asthma, uncomplicated; Z79.4 Long term (current) use of insulin; Z79.84 Long term (current) use of oral hypoglycemic drugs; Z88.0 Allergy status to penicillin; Z87.891 Personal history of nicotine dependence
CPT/HCPCS: 36415; 71010; 76775; 80048; 80053; 81001; 81003; 82962; 83036; 83605; 83735; 84100; 84484; 85025; 85610; 85730; 87040; 87045; 87075; 87086; 90686; 93005; 94664; 96374; 96375; J0360; J0744; J1650; J1815; J1956; J7030